=== PATIENT | female | born 1975 | race Caucasian/White ===

== ENCOUNTER 2024-07-30 21:35 | Emergency (ER) | payer MEDICAID ==
[~2024-07-30] VITALS: Ht 152.4 cm; Wt 91.0 kg
[2024-07-30 21:41] VITALS: O2SAT 99
[2024-07-30] MEDS ORDERED: LABETALOL 5MG/ML 4ML INJ IV ONE (22:15)
[2024-07-30] MEDS: ONDANSETRON HCL 4MG/2ML INJ IV ONE (23:16)
[2024-07-30] MEDS: MORPHINE SULFATE 2 MG/ML INJ (NOT FOR IM USE) IV ONE (23:19)
[2024-07-30] MEDS: ACETAMINOPHEN 325MG TABLET PO ONE (23:19)
[2024-07-30 23:34] LABS: BASOPHILS % 0.6 % (0.0-2.0); HEMATOCRIT. 37.9 % (36.0-48.0); LYMPHOCYTES % 27.4 % (20.0-50.0); MEAN CORPUSCULAR HEMOGLOBIN 25.7 pg (28.0-32.0); MEAN CORPUSCULAR HGB CONC 31.8 g/dL (31.0-37.0); MEAN CORPUSCULAR VOLUME 80.8 fL (81.0-99.0); MEAN PLATELET VOLUME 7.1 fl (7.4-10.4); MONOCYTES % 5.1 % (2.0-8.0); NEUTROPHILS % 64.9 % (40.0-76.0); PLATELET 356 x1000/uL (130-400); RED BLOOD CELL COUNT 4.69 mill/uL (4.2-5.4); RED CELL DISTRIBUTION WIDTH 21.1 % (11.6-14.6); WHITE BLOOD COUNT 8.5 x1000/uL (4.5-11.0)
[2024-07-30 23:40] LABS: HCG SCREEN NEGATIVE
[2024-07-30 23:43] LABS: CARBON DIOXIDE 20 mEq/L (21-32); CHLORIDE 105 mEq/L (98-107); POTASSIUM 3.6 mEq/L (3.5-5.1); SODIUM 140 mEq/L (136-145)
[2024-07-30 23:44] LABS: CALCIUM 9.8 mg/dL (8.7-10.4)
[2024-07-30 23:48] LABS: CREATININE 0.6 mg/dL (0.6-1.0); GLUCOSE 125 mg/dL (70-105)
[2024-07-30 23:49] LABS: ETHANOL BLOOD 256 mg/dL (<10); UREA NITROGEN BLOOD 7 mg/dL (9-23)
[2024-07-30 23:53] LABS: TROPONIN I HIGH SENSITIVITY < 4 ng/L (3.0-34)
[2024-07-31 00:05] VITALS: BP 117/72; PULSE 99; RESP 20; TEMP 36.50292; O2SAT 99
== END 2024-07-31 00:45 | disposition home or self-care (01) ==
LOC: ER 21:35
DX: F10.129 Alcohol abuse with intoxication, unspecified (principal); E11.9 Type 2 diabetes mellitus without complications; I10 Essential (primary) hypertension; Y90.8 Blood alcohol level of 240 mg/100 ml or more
CPT/HCPCS: 80048; 80320; 84703; 83880; 83690; 85025; 84484; 36415; 71045; 93005; 96374; 96375; 99285; J2405; J2270; Z7610 ×2; G0480